=== PATIENT | female | born 1965 | race Caucasian/White ===

== ENCOUNTER 2021-09-06 15:13 | Emergency (ER) | payer OTHER ==
[~2021-09-06 15:13] MED LIST: PERCOCET 5/325 T1 EA PO
[2021-09-06] MEDS ORDERED: BACTRIM DS TAB1 EACH PO (17:05)
[2021-09-12] MEDS ORDERED: NOVOLOG MI100 UNITS/ INJ (18:06)
== END 2021-09-06 17:12 | disposition home or self-care (01) ==
LOC: ER1 15:13
DX: L72.3 Sebaceous cyst (principal); L02.811 Cutaneous abscess of head [any part, except face]; I10 Essential (primary) hypertension; E11.9 Type 2 diabetes mellitus without complications
CPT/HCPCS: 10060; 96374; 96375; 99282; J0696; J2060

== ENCOUNTER 2021-09-12 12:09 | Inpatient (IN) | payer OTHER ==
[~2021-09-12] VITALS: Ht 149.9 cm; Wt 75.8 kg
[~2021-09-12 12:09] MED LIST changes: +BACTRIM DS TAB1 EACH PO
[2021-09-12 13:17] LABS: HEMOGLOBIN 15.6 gm/dl (12.3-15.3); RED BLOOD COUNT 4.58 M/UL (4.00-5.10); WHITE BLOOD COUNT 18.5 K/UL (4.5-11.0)
[2021-09-12] MEDS ORDERED: ZOFRAN ODT 4 MG4 MG PO (18:04)
[2021-09-12] MEDS ORDERED: CIPROFLOXACIN500 M1 PO (18:05)
[2021-09-12] MEDS ORDERED: TRAMADOL HCL50 MG PO (18:05)
[2021-09-12] MEDS ORDERED: BENZTROPINE MESY1 MG PO (18:06)
[2021-09-12] MEDS ORDERED: NOVOLOG MI100 UNITS/ SC (18:06)
[2021-09-12] MEDS ORDERED: TRAZODONE HCL100 MG PO (18:07)
[2021-09-12] MEDS ORDERED: ZOLOFT100 MG PO (18:07)
[2021-09-12] MEDS ORDERED: METOPROLOL SUC100 MG PO ×2 (18:08)
[2021-09-12 21:03] LABS: BUN/CREATININE RATIO 31 (0-10)
[2021-09-12 23:20] LABS: BUN/CREATININE RATIO 33 (0-10)
[2021-09-13 03:24] LABS: WHITE BLOOD COUNT 18.2 K/UL (4.5-11.0)
[2021-09-13 03:26] LABS: HEMOGLOBIN 13.6 gm/dl (12.3-15.3); RED BLOOD COUNT 4.09 M/UL (4.00-5.10)
[2021-09-13 03:34] LABS: BUN/CREATININE RATIO 29 (0-10)
[2021-09-13 07:58] LABS: BUN/CREATININE RATIO 23 (0-10)
[2021-09-13 10:07] LABS: BUN/CREATININE RATIO 23 (0-10)
[2021-09-14 09:18] LABS: HEMOGLOBIN 13.4 gm/dl (12.3-15.3); RED BLOOD COUNT 3.97 M/UL (4.00-5.10); WHITE BLOOD COUNT 12.6 K/UL (4.5-11.0)
[2021-09-14 10:11] LABS: BUN/CREATININE RATIO 15 (0-10)
[2021-09-15 08:28] LABS: RED BLOOD COUNT 3.69 M/UL (4.00-5.10); WHITE BLOOD COUNT 10.9 K/UL (4.5-11.0)
[2021-09-15 09:43] LABS: BUN/CREATININE RATIO 10 (0-10)
[2021-09-15] MEDS ORDERED: ASPIRIN EC81 MG PO (15:53)
[2021-09-15] MEDS ORDERED: LEVOFLOXACIN500 MG PO (15:53)
[2021-09-15] MEDS ORDERED: ATORVASTATIN CA20 MG PO (15:53)
[2021-09-16 05:13] LABS: HEMOGLOBIN 12.2 gm/dl (12.3-15.3); RED BLOOD COUNT 3.69 M/UL (4.00-5.10); WHITE BLOOD COUNT 9.5 K/UL (4.5-11.0)
== END 2021-09-16 15:10 | disposition home or self-care (01) | DRG 871 ==
LOC: ER1 12:09 → PROG CARE 14:56 → CDU 14:56 → CCU 18:41 → PROG CARE 09-13 14:28
PROVIDERS: Emergency Medicine; Physician Assistant; ADMIT Internal Medicine
PROC: B24BZZZ Ultrasonography of Heart with Aorta (ICD-10-PCS; 2021-09-13)
PROC: 3E033XZ Introduction of Vasopressor into Peripheral Vein, Percutaneous Approach (ICD-10-PCS; principal; 2021-09-14)
DX: A41.9 Sepsis, unspecified organism (principal); R65.21 Severe sepsis with septic shock; E11.10 Type 2 diabetes mellitus with ketoacidosis without coma; I21.A1 Myocardial infarction type 2; L02.91 Cutaneous abscess, unspecified; Z68.45 Body mass index [BMI] 70 or greater, adult; Z20.822 Contact with and (suspected) exposure to COVID-19; E66.01 Morbid (severe) obesity due to excess calories; Z91.14 Patient's other noncompliance with medication regimen; I10 Essential (primary) hypertension; E78.5 Hyperlipidemia, unspecified; E87.6 Hypokalemia; F32.A Depression, unspecified; Z96.662 Presence of left artificial ankle joint; F17.200 Nicotine dependence, unspecified, uncomplicated; J32.9 Chronic sinusitis, unspecified; Z96.661 Presence of right artificial ankle joint; Z79.84 Long term (current) use of oral hypoglycemic drugs; Z79.4 Long term (current) use of insulin; Z88.2 Allergy status to sulfonamides; Z90.89 Acquired absence of other organs; Z88.0 Allergy status to penicillin; Z90.710 Acquired absence of both cervix and uterus; Z82.49 Family history of ischemic heart disease and other diseases of the circulatory system; Z83.3 Family history of diabetes mellitus; Z80.51 Family history of malignant neoplasm of kidney; Z79.82 Long term (current) use of aspirin
CPT/HCPCS: ECHO; 36415; 71045; 80048; 80053; 80202; 81001; 82009; 82550; 82553; 82962; 83036; 83735; 83880; 84100; 84484; 85025; 85027; 86140; 87040; 93005; 93306; 96372; 96374; 96375; 97116; 97162; 97165; 97530; 99285; C1751; J1650; J2060; J2185; J2405; J3370; J3410; J3480; J7030; J7070; U0002

== ENCOUNTER → 2021-09-26 | Day surgery (SDC) | payer OTHER ==
[~2021-09-26] MED LIST changes: +ASPIRIN EC81 MG PO; +ATORVASTATIN CA20 MG PO; +BENZTROPINE MESY1 MG PO; +CIPROFLOXACIN500 M1 PO; +HYDROCODON-ACE1 EAC6 PO; +LEVOFLOXACIN500 MG PO; +METOPROLOL SUC100 MG PO; +NOVOLOG MI100 UNITS/ SC; +TRAMADOL HCL50 MG PO; +TRAZODONE HCL100 MG PO; +ZOFRAN ODT 4 MG4 MG PO; +ZOLOFT100 MG PO
== END | disposition home or self-care (01) ==
LOC: OR 05:24
DX: E11.622 Type 2 diabetes mellitus with other skin ulcer (principal); L98.499 Non-pressure chronic ulcer of skin of other sites with unspecified severity; E11.42 Type 2 diabetes mellitus with diabetic polyneuropathy; I10 Essential (primary) hypertension; E78.00 Pure hypercholesterolemia, unspecified; F41.9 Anxiety disorder, unspecified; F32.A Depression, unspecified; Z88.0 Allergy status to penicillin; Z88.2 Allergy status to sulfonamides; Z79.82 Long term (current) use of aspirin; Z79.4 Long term (current) use of insulin; Z79.899 Other long term (current) drug therapy; Z20.822 Contact with and (suspected) exposure to COVID-19
CPT/HCPCS: 82962; J1100; J2001; J2250; J2405; J2704; J3010; J7030; J7120

== ENCOUNTER 2021-12-19 13:35 | Emergency (ER) | payer OTHER ==
[2021-12-19 16:12] LABS: HEMOGLOBIN 16.6 gm/dl (12.3-15.3); RED BLOOD COUNT 4.95 M/UL (4.00-5.10); WHITE BLOOD COUNT 13.7 K/UL (4.5-11.0)
== END 2021-12-19 19:09 | disposition home or self-care (01) ==
LOC: ER1 13:35
PROVIDERS: Physician Assistant Medical
DX: G43.909 Migraine, unspecified, not intractable, without status migrainosus (principal); E11.65 Type 2 diabetes mellitus with hyperglycemia; I25.2 Old myocardial infarction; Z88.2 Allergy status to sulfonamides; Z88.0 Allergy status to penicillin
CPT/HCPCS: 80053; 81001; 82009; 82962; 85025; 96374; 96375; 96376; 99284; J1885